=== PATIENT | male | born 1995 | race Caucasian/White ===

== ENCOUNTER 2018-03-05 18:21 | Emergency (ER) | payer SELFPAY ==
[~2018-03-05] VITALS: Ht 170.2 cm; Wt 75.0 kg
[2018-03-05] MEDS ORDERED: KETOROLAC 60MG/2ML VIAL IM ONE (21:30)
[2018-03-05 23:32] VITALS: BP 116/83
== END 2018-03-05 23:36 | disposition home or self-care (01) ==
LOC: ER 18:21
DX: M25.512 Pain in left shoulder (principal); M25.522 Pain in left elbow; M54.2 Cervicalgia; M54.89 Other dorsalgia; M25.562 Pain in left knee; M25.561 Pain in right knee; M79.662 Pain in left lower leg; M79.661 Pain in right lower leg; V03.00XA Pedestrian on foot injured in collision with car, pick-up truck or van in nontraffic accident, initial encounter; Y93.89 Activity, other specified; Y92.89 Other specified places as the place of occurrence of the external cause; F12.90 Cannabis use, unspecified, uncomplicated; R10.2 Pelvic and perineal pain
CPT/HCPCS: 71250; 72125; 73010; 73080; 73562; 73590; 74176; 96372; 99284; J1885

== ENCOUNTER 2018-09-24 11:40 | Emergency (ER) | payer SELFPAY ==
[~2018-09-24] VITALS: Ht 165.1 cm; Wt 75.0 kg
[2018-09-24] MEDS ORDERED: AZITHROMYCIN 500 MG TABLET PO ONE (15:00)
[2018-09-24] MEDS ORDERED: CEFTRIAXONE SODIUM 250 MG/VIAL IM ONE (15:00)
[2018-09-24 15:51] LABS: CLARITY URINE CLEAR (CLEAR); COLOR URINE YELLOW (YELLOW); KETONES URINE NEGATIVE (NEGATIVE); LEUKOCYTE ESTERASE URINE 2+ (NEGATIVE); NITRITE URINE NEGATIVE (NEGATIVE); OCCULT BLOOD URINE NEGATIVE (NEGATIVE); PH URINE 6.5 (4.5-8.0); PROTEIN URINE NEGATIVE (NEGATIVE); SPECIFIC GRAVITY URINE 1.024 (1.005-1.030)
[2018-09-24 16:39] VITALS: BP 122/79
[2018-09-27 05:15] LABS: CHLAMYDIA TRACHOMATIS NAA Positive (Negative); NEISSERIA GONORRHOEAE NAA Positive (Negative)
== END 2018-09-24 16:41 | disposition home or self-care (01) ==
LOC: ER 11:40
DX: A64 Unspecified sexually transmitted disease (principal)
CPT/HCPCS: 81003; 87491; 87591; 96372; 99283; J0696

== ENCOUNTER 2021-07-14 17:22 | Emergency (ER) | payer SELFPAY ==
[~2021-07-14] VITALS: Ht 160 cm; Wt 59.0 kg
[2021-07-14 17:27] VITALS: BP 140/71
[2021-07-14 19:32] LABS: CLARITY URINE CLEAR (CLEAR); COLOR URINE YELLOW (YELLOW); KETONES URINE NEGATIVE (NEGATIVE); LEUKOCYTE ESTERASE URINE NEGATIVE (NEGATIVE); NITRITE URINE NEGATIVE (NEGATIVE); OCCULT BLOOD URINE 3+ (NEGATIVE); PROTEIN URINE NEGATIVE (NEGATIVE); SPECIFIC GRAVITY URINE 1.014 (1.005-1.030)
[2021-07-17 05:10] LABS: NEISSERIA GONORRHOEAE NAA Negative (Negative)
== END 2021-07-14 19:22 | disposition left against medical advice (07) ==
LOC: ER 17:22
DX: R31.0 Gross hematuria (principal); R30.0 Dysuria; Z70.1 Counseling related to patient's sexual behavior and orientation; R03.0 Elevated blood-pressure reading, without diagnosis of hypertension; F17.210 Nicotine dependence, cigarettes, uncomplicated; Z71.6 Tobacco abuse counseling
CPT/HCPCS: 81003; 87491; 87591; 99283

== ENCOUNTER 2021-07-26 09:27 | Emergency (ER) | payer SELFPAY ==
[~2021-07-26] VITALS: Ht 157.5 cm; Wt 85.0 kg
[2021-07-26 09:36] VITALS: BP 116/81
[2021-07-26 10:59] LABS: CLARITY URINE CLEAR (CLEAR); COLOR URINE YELLOW (YELLOW); KETONES URINE NEGATIVE (NEGATIVE); LEUKOCYTE ESTERASE URINE TRACE (NEGATIVE); NITRITE URINE NEGATIVE (NEGATIVE); OCCULT BLOOD URINE 3+ (NEGATIVE); PROTEIN URINE TRACE (NEGATIVE); SPECIFIC GRAVITY URINE 1.021 (1.005-1.030); UROBILINOGEN URINE 0.2 E.U./dL (0.2-1.0)
[2021-07-26] MEDS ORDERED: DOXY100C5 MT (11:22)
[2021-07-26] MEDS ORDERED: DOXYCYCLINE HYCLATE 100MG CAPSULE PO NR (11:30)
[2021-07-26] MEDS ORDERED: DOXYCYCLINE HYCLATE 100MG CAPSULE PO ONE (11:30)
[2021-07-26] MEDS ORDERED: CEFTRIAXONE SODIUM 500 MG/VIAL IM ONE (11:30)
== END 2021-07-26 11:42 | disposition home or self-care (01) ==
LOC: ER 09:46
DX: N39.0 Urinary tract infection, site not specified (principal); F12.10 Cannabis abuse, uncomplicated; F17.210 Nicotine dependence, cigarettes, uncomplicated
CPT/HCPCS: 81003; 96372; 99283; J0696